=== PATIENT | male | born 1965 | race Caucasian/White ===

== ENCOUNTER 2018-09-06 13:15 | Emergency (ER) | payer BC, OTHER, SELFPAY ==
[2018-09-06] MEDS ORDERED: Lidocaine 1% (PF) 30 ML VIAL ONE (13:55)
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
[2018-09-06] MEDS ORDERED: Bacitracin Zinc 1 Packet ONE (15:06)
== END 2018-09-06 15:25 | disposition home or self-care (01) ==
LOC: ERS 13:15
DX: S61.210A Laceration without foreign body of right index finger without damage to nail, initial encounter (principal); E78.00 Pure hypercholesterolemia, unspecified; Z79.899 Other long term (current) drug therapy; W25.XXXA Contact with sharp glass, initial encounter
CPT/HCPCS: 12001; 71045; G0390; J2001